=== PATIENT | female | born 1970 | race Hispanic/Latino ===

== ENCOUNTER 2023-05-19 23:55 | Emergency (ER) | payer SELFPAY ==
--- OUTSIDE RECORDS SUMMARY | 2023-05-19 23:58 | XMS REPORT | Continuity of Care Document ---
:1970 Author Organization [facility] t Address [address] [facility] [address] [place] [id number] Care Team Providers Name Role Phone Unavailable Unavailable Unavailable Problems This patient has no known problems. Allergies, Adverse Reactions, Alerts This patient has no known allergies or adverse reactions. Medications This patient has no known medications. Procedures This patient has no known procedures. Encounters Start End Encounter Admission Attending Care Care Encounter Source Date/Time Date/Time Type Type Clinicians Facility Department ID 2023-04-13 2023-04-13 Outpatient SFA SFA [id number] [place] 14:39:08 14:39:08 [id number] [facility] [place] 2023-03-26 2023-03-26 Outpatient SFA SFA [id number] [place]ir 17:17:57 17:17:57 [id number] [facility] [place] 2022-12-22 2022-12-22 Outpatient SFA SFA [id number] [place] 14:14:05 14:14:05 [id number] [facility] [place] 2022-11-16 2022-11-16 Outpatient SFA SFA [id number] [place]ir 15:01:29 15:01:29 [id number] [facility] [place] 2022-09-25 2022-09-25 Outpatient SFA SFA [id number] [place]ir 14:24:13 14:24:13 [id number] [facility] [place] 2022-08-17 2022-08-17 Outpatient SFA [id number] [id number] [place]ir 11:25:00 11:25:00 [id number] [facility] [place] 2022-05-18 2022-05-18 Outpatient SFA SFA [id number] Bashir 15:45:14 15:45:14 [id number] [facility] 2022-04-12 2022-04-12 Outpatient SFA SFA [id number] Bashir 13:58:58 13:58:58 [facility] 2022-04-10 2022-04-10 Outpatient SFA SFA [id number] [place]ir 15:05:59 15:05:59 [id number] F [facility] Results Test Description Test Time Test Comments Results Result Comments Source LIPID PANEL 2023-04-14 05:29:00 Test Item Value Reference Range Interpretation Comme nts CHOLESTEROL (test code = 2210) 174 MG/DL <200 TRIGLYCERIDES (test code = 2232) 98 MG/DL <150 HDL CHOLESTEROL (test code = 58 MG/DL >39 2219) CALC LDL CHOL (test code = 2237) 97 MG/DL <100 NOTE: CALCULATED LDL IS BASED ON SNEHA-OSBORNE METHOD WHICHINCLUDES A DJUSTABLE TRIGLYCERIDE:VL DL CHOLESTEROL RATIO.THIS FACT OR VARIES BY MEASURED TRIGLY CERIDE AND NON-HDLCHOLESTE ROL CONCENTRATIONS WITH INCREASED CALCULATED LDL SEENIN HIGHER T RIGLYCERIDE OR LOWER NON-HDL S PECIMENS. FOR MOREINFORMATION , SEE CLIENT ANNOUNCEMENT AT [email or web address] LDL/HDL (test code = 1.67 RATIO <3.22 2237) COMPREHENSIVE METABOLIC [id number] 05:29:00 Test Item Value Reference Range Interpretation Comments GLUCOSE (test code = 2217) 110 MG/DL 70-99 H BUN (test code = 2208) 18 MG/DL 6-20 CREATININE (test code = 2214) 0.90 MG/DL 0.60-1.30 eGFR (2020 CKD-EPI) (test code 75 ML/MIN/1.73 >60 = 47974) CALC BUN/CREAT (test code = 20 RATIO 12-13) SODIUM (test code = 2231) 140 MEQ/L 133-146 POTASSIUM (test code = 2228) 4.6 MEQ/L 3.5-5.4 CHLORIDE (test code = 2215) 103 MEQ/L 95-107 CARBON DIOXIDE (test code = 27 MEQ/L -2205) CALCIUM (test code = 2209) 9.7 MG/DL 8.5-10.5 PROTEIN, TOTAL (test code = 6.9 G/DL 6.1-8.3 2228) ALBUMIN (test code = 220) 4.2 G/DL 3.5-5.2 CALC GLOBULIN (test code = 2.7 G/DL 1.9-3.7 2239) CALC A/G RATIO (test code = 1.6 RATIO 1.0-2.6 2233) BILIRUBIN, TOTAL (test code = 1.3 MG/DL <=1.2 H 2206) ALKALINE PHOSPHATASE (test 105 U/L 40-133 code = 2204) AST (test code = 2218) 29 U/L 9-40 ALT (test code = 2219) 30 U/L 5-40 HEMOGLOBIN [id number] 03:22:11 Test Item Value Reference Range Interpretation Comments HEMOGLOBIN A1c (test 5.6 % 4.2-5.6 UNLESS OTHERWISE code = 74487) INDICATED, ALL TESTING PERFORMED AT [facility] [employer]. [address] [place], [place] [id number] [place] [address] DIRECTOR: LEONID RATLIFF M.D. IA NUMBER [id number] CAP ACCREDITATION N O. [id number] HEMOGLOBIN [id number] 06:24:06 Test Item Value Reference Range Interpretation Comments HEMOGLOBIN A1c (test 5.7 % 4.2-5.6 H AMERIC AN DIABETES code = 08317) ASSOCIATION IDELINES FOR HGB A1C: PREDIABETES/INC REASED RISK . . . . . . . 5.7 -6.4% DIAGNOSIS OF DI ABETES . . . . . . . . . >=6 .5% WITH CONFIRMATION OR APPROPRIATE SYMPTOMS NOTE: ASSAY MAY BE AFFECTED BY HEMOGLOBINOPATH IES (SICKLE CELL ANEMIA, S- C DISEASE, OTHERS) OR LEXII FICIALLY LOWERED BY DECR EASED RED CELL SURVIVAL ( HEMOLYTIC ANEMIAS, BLOOD LOSS, ETC.). CONSIDER ALTERN ATE TESTING OR LABORATORY C ONSULTATION. CBC W/AUTO DIFF WITH [id number] 05:48:04 Test Item Value Reference Range Interpretation Comments WBC (test code = 6.9 K/UL 3.5-11.0 1001) RBC (test code = 4.59 M/UL 3.80-5.40 1002) HEMOGLOBIN (test code 12.8 G/DL 11.5-15.5 = 1003) HEMATOCRIT (test code 39.8 % 34.0-45.0 = 1004) MCV (test code = 86.7 fL 80.0-99.0 1005) MCH (test code = 27.9 PG 25.0-33.0 1006) MCHC (test code = 32.2 G/DL 31.0-36.0 1007) RDW (test code = 13.0 % 11.5-15.0 1038) NEUTROPHILS (test 60.5 % code = 1008) LYMPHOCYTES (test 29.7 % code = 1010) MONOCYTES (test code 7.1 % = 1011) EOSINOPHILS (test 1.5 % code = 1012) BASOPHILS (test code 0.6 % = 1013) IMMATURE GRANULOCYTES 0.6 % (test code = 1036) NUCLEATED RBCS (test 0.0 /100 WBC'S See_Comment [Aut omated code = 1065) message] The sy stem which generated this result transmitted reference range : 0.0. The refere nce range was not u sed to interpret th is result as normal/abnormal . PLATELET COUNT (test 271 K/UL 130-400 code = 1015) ABSOLUTE NEUTROPHILS 4.16 K/UL 1.50-7.50 (test code = 1066) ABSOLUTE LYMPHOCYTES 2.04 K/UL 1.00-4.00 (test code = 1067) ABSOLUTE MONOCYTES 0.49 K/UL 0.20-1.00 (test code = 1068) ABSOLUTE EOSINOPHILS 0.10 K/UL 0.00-0.50 (test code = 1040) ABSOLUTE BASOPHILS 0.04 K/UL 0.00-0.20 (test code = 1069) ABS IMMATURE 0.04 K/UL 0.00-0.10 GRANULOCYTES (test code = 1020) ABS NUCLEATED RBCS 0.00 K/UL 0.00-0.11 (test code = 46157) [id number] 05:26:23 Test Item Value Reference Range Interpretation Comments NT-proBNP <50 PG/ML SEE BELOW If NT-ProBNP i s less than 300 (test code = PG/ML, heart fa ilure is unlikely 57596) for allages. Age............ .....Heart Failure Likely <50 Years.......... .>=450 PG/ML 50-75 Years.... .....>=900 PG/ML > 75 Years..... .....>=1800 PG/ML Methodology: Ro damián Carmen Electrochemilum inescense Immunoassay LIPID [id number] 04:32:32 Test Item Value Reference Range Interpretation Comments CHOLESTEROL (test 177 MG/DL <200 code = 2210) TRIGLYCERIDES (test 100 MG/DL <150 code = 2232) HDL CHOLESTEROL (test 57 MG/DL >39 code = 2220) CALC LDL CHOL (test 100 MG/DL <100 H NOTE: C ALCULATED LDL code = 2237) IS BASED ON SNEHA-OSBORNE METHOD WHICHINCLUDES ADJUSTABLE TRIGLYCERIDE:VL DL CHOLESTEROL RAT IO.THIS FACTOR VARIES B Y MEASURED TRIGLY CERIDE AND NON-HDLCHOL ESTEROL CONCENTRATIONS WITH INCREASED CALCU LATED LDL SEENIN HIGH ER TRIGLYCERIDE OR LOWER NON-HDL SPECIME NS. FOR MOREINFORMATION , SEE CLIENT ANNOUNCE MENT AT [email or web address] RATIO LDL/HDL 1.75 RATIO <3.22 (test code = 2238) COMPREHENSIVE METABOLIC [id number] 04:32:32 Test Item Value Reference Range Interpretation Comments GLUCOSE (test code = 94 MG/DL 70-99 2216) BUN (test code = 18 MG/DL 6-20 2207) CREATININE (test 0.83 MG/DL 0.60-1.30 code = 2214) eGFR (2020 CKD-EPI) 84 >60 (test code = 86130) ML/MIN/1.73 CALC BUN/CREAT (test 22 RATIO 6-28 code = 2235) SODIUM (test code = 141 MEQ/L 583-345 5933) POTASSIUM (test code 4.4 MEQ/L 3.5-5.4 = 2227) CHLORIDE (test code 104 MEQ/L 95-107 = 2214) CARBON DIOXIDE (test 26 MEQ/L 19-31 code = 2206) CALCIUM (test code = 9.9 MG/DL 8.5-10.5 2208) PROTEIN, TOTAL (test 7.1 G/DL 6.1-8.3 code = 2229) ALBUMIN (test code = 4.4 G/DL 3.5-5.2 2200) CALC GLOBULIN (test 2.7 G/DL 1.9-3.7 code = 2240) CALC A/G RATIO (test 1.6 RATIO 1.0-2.6 code = 2234) BILIRUBIN, TOTAL 1.1 MG/DL See_Comment [Automated message] (test code = 2207) The [employer] which generated this result transmitted ref erence range: <=1.2. T he reference range was not used to int erpret this result as normal/abnormal . ALKALINE PHOSPHATASE 105 U/L 40-133 (test code = 2203) AST (test code = 23 U/L 9-40 2217) ALT (test code = 27 U/L 5-40 [facility] alarcon s 2218) important patho logy staff changes effective 08/16. New patholo gy staff will prov benigno uninterrupted, excellent patie nt care and clini melany consultation. S ee URL: [email or web address] UNLE SS OTHERWISE INDIC ATED, ALL TESTING PER FORMED AT [facility], [place] [id number] JAYDON BRUNO DIRECTOR: FEDERICA KERN M.D. CLIA NUMBER [id number] CAP ACCREDITATION N O. [id number] TSH, THIRD [id number] 03:16:43 Test Item Value Reference Range Interpretation Comments TSH, THIRD 1.200 UIU/ML 0.400-4.100 UNLESS OTHERWI SE GENERATION (test INDICATED, ALL TESTING code = 2821) PERFORMED [facility] [place] [id number] JAYDON BRUNO DIRECTOR: FEDERICA KERN M.D. CLIA NUMBER [id number] CAP ACCREDITATION N O. [id number] LIPID [id number] 01:35:20 Test Item Value Reference Range Interpretation Comments CHOLESTEROL (test 196 MG/DL <200 code = 2210) TRIGLYCERIDES (test 117 MG/DL <150 code = 2232) HDL CHOLESTEROL (test 61 MG/DL >39 code = 2220) CALC LDL CHOL (test 113 MG/DL <100 H NOTE: C ALCULATED LDL code = 2237) IS BASED ON SNEHA-OSBORNE METHOD WHICHINCLUDES ADJUSTABLE TRIGLYCERIDE:VL DL CHOLESTEROL RAT IO.THIS FACTOR VARIES B Y MEASURED TRIGLY CERIDE AND NON-HDLCHOL ESTEROL CONCENTRATIONS WITH INCREASED CALCU LATED LDL SEENIN HIGH ER TRIGLYCERIDE OR LOWER NON-HDL SPECIME NS. FOR MOREINFORMATION , SEE CLIENT ANNOUNCE MENT AT [email or web address] RISK RATIO LDL/HDL 1.85 RATIO <3.22 (test code = 2238) COMPREHENSIVE METABOLIC [id number] 01:35:20 Test Item Value Reference Range Interpretation Comments GLUCOSE (test code = 95 MG/DL 70-99 2216) BUN (test code = 20 MG/DL 6-20 2207) CREATININE (test 0.89 MG/DL 0.60-1.30 code = 2214) eGFR (2020 CKD-EPI) 77 ML/MIN/1.73 >60 (test code = 21688) CALC BUN/CREAT (test 22 RATIO 6-28 code = 2235) SODIUM (test code = 140 MEQ/L 029-110 7662) POTASSIUM (test code 4.4 MEQ/L 3.5-5.4 = 2227) CHLORIDE (test code 102 MEQ/L 95-107 = 2214) CARBON DIOXIDE (test 23 MEQ/L 19-31 code = 2206) CALCIUM (test code = 9.5 MG/DL 8.5-10.5 2208) PROTEIN, TOTAL (test 7.0 G/DL 6.1-8.3 code = 222) ALBUMIN (test code = 4.4 G/DL 3.5-5.2 2200) CALC GLOBULIN (test 2.6 G/DL 1.9-3.7 code = 2240) CALC A/G RATIO (test 1.7 RATIO 1.0-2.6 code = 2234) BILIRUBIN, TOTAL 0.9 MG/DL See_Comment [Automated message] (test code = 220) The syste m which generated this result transmit renard reference range : <=1.2. The refe rence range was not u sed to interpret th is result as normal/abnormal . ALKALINE PHOSPHATASE 83 U/L 40-133 (test code = 2204) AST (test code = 20 U/L 9-40 2217) ALT (test code = 22 U/L 5-40 2218) CBC W/AUTO DIFF WITH [id number] 04:15:33 Test Item Value Reference Range Interpretation Comments WBC (test code = 8.8 K/UL 3.5-11.0 1001) RBC (test code = 4.66 M/UL 3.80-5.40 1002) HEMOGLOBIN (test code 13.5 G/DL 11.5-15.5 = 1003) HEMATOCRIT (test code 39.7 % 34.0-45.0 = 1004) MCV (test code = 85.2 fL 80.0-99.0 1005) MCH (test code = 29.0 PG 25.0-33.0 1006) MCHC (test code = 34.0 G/DL 31.0-36.0 1007) RDW (test code = 13.1 % 11.5-15.0 1038) NEUTROPHILS (test 78.0 % code = 1008) LYMPHOCYTES (test 16.5 % code = 1010) MONOCYTES (test code 4.2 % = 1011) EOSINOPHILS (test 0.5 % code = 1012) BASOPHILS (test code 0.6 % = 1013) IMMATURE GRANULOCYTES 0.2 % (test code = 1036) NUCLEATED RBCS (test 0.0 /100 WBC'S See_Comment [Aut omated code = 1065) message] The sy stem which generated this result transmitted reference range : 0.0. The refere nce range was not u sed to interpret th is result as normal/abnormal . PLATELET COUNT (test 277 K/UL 130-400 code = 1015) ABSOLUTE NEUTROPHILS 6.87 K/UL 1.50-7.50 (test code = 1066) ABSOLUTE LYMPHOCYTES 1.45 K/UL 1.00-4.00 (test code = 1067) ABSOLUTE MONOCYTES 0.37 K/UL 0.20-1.00 (test code = 1068) ABSOLUTE EOSINOPHILS 0.04 K/UL 0.00-0.50 (test code = 1040) ABSOLUTE BASOPHILS 0.05 K/UL 0.00-0.20 (test code = 1069) ABS IMMATURE 0.02 K/UL 0.00-0.10 GRANULOCYTES (test code = 1020) ABS NUCLEATED RBCS 0.00 K/UL 0.00-0.11 (test code = 20363)
[2023-05-20 00:57] LABS: Absolute Lymphocytes (CBC) 2.9 K/uL (0.7-4.9); Hematocrit 40.2 % (36.0-45.0); Lymphocytes % 36.1 % (15.3-44.8); MPV 8.9 fL (7.6-11.3); Platelets 224 thou/uL (152-406); RBC Red Blood Cell Count 4.68 M/uL (3.86-4.86)
[2023-05-20 01:07] LABS: Protime INR 0.88
[2023-05-20 01:16] LABS: Albumin 3.7 g/dL (3.4-5.0); Bilirubin Direct 0.2 mg/dL (0-0.2); Bilirubin Indirect, Calculated 0.5 mg/dL (0.2-0.8); Bilirubin Total 0.7 mg/dL (0.2-1.0); Magnesium 2.3 mg/dL (1.6-2.4); Potassium 3.7 mEq/L (3.5-5.1); Protein, Total 7.6 g/dL (6.4-8.2); Troponin High Sensitivity 7.2 pg/mL (<58.9)
--- NOTE | 2023-05-20 02:22 | ER ---
Nurse's Notes [facility] Name: Christine Real Age: 53 yrs Sex: Female : 1970 Arrival Date: 05/19/2023 Time: 23:55 Bed 18 Private MD: Diagnosis: Weakness;Anxiety disorder, unspecified Presentation: 05/20 00:15 Chief complaint: Patient states: Left sided weakness onset 3 hrs ago. Pt states that cm10 she was watching TV when all of this began. Pt states that 45 minutes ago pt began having a heavy sensation to left arm and leg. pt denies headache and reports shortness of breath. PT denies chest pain. Coronavirus screen: Vaccine status: Patient reports being unvaccinated. Client denies travel out of the [place] in the last 14 days. Ebola Screen: Patient denies travel to an Ebola-affected area in the 21 days before illness onset. No symptoms or risks identified at this time. Initial Sepsis Screen: Does the patient meet any 2 criteria? No. Patient's initial sepsis screen is negative. Does the patient have a suspected source of infection? No. Patient's initial sepsis screen is negative. Risk Assessment: Do you want to hurt yourself or someone else? Patient reports no desire to harm self or others. Onset of symptoms was May 20, 2023. 00:15 Method Of Arrival: Ambulatory cm10 00:15 Acuity: SACHIN 3 cm10 Historical: - Allergies: 00:18 No Known Allergies; cm10 - PMHx: 00:18 Hypertensive disorder; cm10 - Immunization history:: Adult Immunizations unknown. - Social history:: Smoking status: Patient denies any tobacco usage or history of. Screenin:45 [facility] ED Fall Risk Assessment (Adult) History of falling in the last 3 months, nw1 including since admission No falls in past 3 months (0 pts) Confusion or Disorientation No (0 pts) Intoxicated or Sedated No (0 pts) Impaired Gait No (0 pts) Mobility Assist Device Used No (0 pt) Altered Elimination No (0 pt) Score/Fall Risk Level 0 - 2 = Low Risk Oriented to surroundings, Maintained a safe environment, Assessed \T\ reinforced patient's understanding of fall precautions, Provided non-skid footwear, Hourly rounding (assess needs \T\ fall precautionary measures) done, Used ambulatory aids as needed (educated on \T\ assisted with). Abuse screen: Denies threats or abuse. Denies injuries from another. Nutritional screening: No deficits noted. Tuberculosis screening: No symptoms or risk factors identified. Assessment: 00:45 Reassessment: Pt states that she was out with and started feeling heaviness to nw1 her left foot. Pt states she was anxious while was driving in [place]. 00:45 General: Appears in no apparent distress. comfortable, Behavior is calm, cooperative, nw1 appropriate for age. Pain: Denies pain. Neuro: No deficits noted. Level of Consciousness is awake, alert, obeys commands, Oriented to person, place, time, situation. Cardiovascular: No deficits noted. Reports None Denies chest pain, diaphoresis, fatigue, lightheadedness, nausea, palpitations, shortness of breath, syncope, vomiting, Heart tones present Capillary refill < 3 seconds Rhythm is sinus rhythm. Respiratory: No deficits noted. Breath sounds are clear bilaterally. GI: No deficits noted. No signs and/or symptoms were reported involving the gastrointestinal system. Derm: No deficits noted. No signs and/or symptoms reported regarding the dermatologic system. Musculoskeletal: No deficits noted. No signs and/or symptoms reported regarding the musculoskeletal system. 00:45 Reassessment: NIH scale 0. nw1 01:50 Reassessment: NIH scale 0. nw1 Vital Signs: 00:15 BP 189 / 93; Pulse 105; Resp 18; Temp 98(IR); Pulse Ox 100% ; Weight 97.52 kg; Height 5 cm10 ft. 1 in. ; 01:48 BP 121 / 81; Pulse 70; Resp 15; Pulse Ox 98% on R/A; nw1 00:15 Body Mass Index 40.62 (97.52 kg, 154.94 cm) cm10 Alicja Coma Score: 00:45 Eye Response: spontaneous(4). Motor Response: obeys commands(6). Verbal Response: nw1 oriented(5). Total: 15. NIH Stroke Scale Scores: 00:23 NIHSS Score: 0 ms3 ED Course: 00:02 Patient arrived in ED. kj1 00:09 Chuyita Vazquez FNP-C is [facility]. kb 00:09 Isiah Salmon DO is Attending Physician. kb 00:17 Triage completed. cm10 00:18 Arm band placed on Patient placed in an exam room, on a stretcher. cm10 00:26 Mel Srivastava, RN is Primary Nurse. nw1 00:45 Patient has correct armband on for positive identification. Placed in gown. Bed in low nw1 position. Side rails up X2. Provided Education on: POC. Client placed on continuous cardiac and pulse oximetry monitoring. NIBP monitoring applied. polyethylene bag machine operator on. Pulse ox on. NIBP on. Door closed. Visitors limited. Warm blanket given. 00:45 Initial lab(s) drawn, by me, sent to lab. Inserted saline lock: 20 gauge in right nw1 forearm, using aseptic technique. Blood collected. 00:53 Stroke CXR 1 View In Process Unspecified. EDMS 00:59 Hepatic Function Sent. nw1 00:59 High Sensitivity Troponin Sent. nw1 00:59 Magnesium Sent. nw1 00:59 Protime (+inr) Sent. nw1 00:59 Ptt, Activated Sent. nw1 00:59 CBC with Diff Sent. nw1 00:59 Basic Metabolic Panel Sent. nw1 01:09 CT Head Angio In Process Unspecified. EDMS 01:09 CT Neck Angio In Process Unspecified. EDMS 01:09 CT Stroke Brain w/o Contrast In Process Unspecified. EDMS 01:49 No provider procedures requiring assistance completed. nw1 02:21 Eliel Alba MD is Referral Physician. ms3 02:37 IV discontinued, intact, bleeding controlled, No redness/swelling at site. Pressure as6 dressing applied. Administered Medications: No medications were administered Medication: 00:45 VIS not applicable for this client. nw1 Outcome: 02:22 Discharge ordered by . ms3 02:37 Discharged to home ambulatory, as6 02:37 Condition: stable 02:37 Discharge instructions given to patient, Instructed on discharge instructions, follow up and referral plans. Demonstrated understanding of instructions, follow-up care, 02:37 Patient left the ED. as6 NIH Stroke Scale - NIH Stroke Score Date: 05/20/2023 Time: 00:23 Total Score = 0 10. Dysarthria (speech clarity - read or repeat words) - 0(Normal) 11. Extinction and Inattention (visual/tactile/auditory/spatial/personal) - 0(No abnormality) 1a. Level of Consciousness (LOC) - 0(Alert) 1b. Level of Consciousness (LOC) (Month \T\ Age) - 0(Both) 1c. LOC Commands (Open \T\ Closes Eyes/Broke Man) - 0(Both) 2. Best Gaze (Lateral Gaze Paresis) - 0(Normal) 3. Visual Field Loss - 0(No visual loss) 4. Facial Palsy - 0(Normal) 5a. Left Arm: Motor (10-second hold) - 0(No drift) 5b. Right Arm: Motor (10-second hold) - 0(No drift) 6a. Left Leg: Motor (5-second hold - always test supine) - 0(No drift) 6b. Right Leg: Motor (5-second hold - always test supine) - 0(No drift) 7. Limb Ataxia (finger/nose \T\ heel/mello - test with eyes open) - 0(Absent) 8. Sensory Loss (pinprick arms/legs/face) - 0(Normal) 9. Best Language: Aphasia (description/naming/reading) - 0(No aphasia) Initials: ms3 Signatures: Dispatcher [employer] EDMS Chuyita Vazquez, CENTRAL SCHEDULER-C CENTRAL SCHEDULER-Ckb Saumya Vazquez kj1 Isiah Salmon, DO ms3 Wilson Carrillo RN RN as6 Sarita Varela, RN RN cm10 Mel Srivastava RN RN nw1
--- NOTE | 2023-05-20 02:22 | EDPHYS ---
Physician Documentation [facility] Name: Christine Real Age: 53 yrs Sex: Female : 1970 Arrival Date: 05/19/2023 Time: 23:55 Bed 18 Private MD: ED Physician Isiah Salmon HPI: 05/20 00:23 This 53 yrs old Female presents to ER via Ambulatory with complaints of High ms3 Blood Pressure, Leg Pain. 00:23 53-year-old female with past medical history of hypertension presents to the emergency ms3 department for left arm/left leg feeling heavy for approximately 3 hours prior to arrival. Patient endorses shortness of breath. Patient denies chest pain, headache, vomiting. Patient denies any alleviating or inciting factors. Historical: - Allergies: 00:18 No Known Allergies; cm10 - PMHx: 00:18 Hypertensive disorder; cm10 - Immunization history:: Adult Immunizations unknown. - Social history:: Smoking status: Patient denies any tobacco usage or history of. ROS: 00:23 Constitutional: Negative for fever, and chills. Neck: Negative for injury, pain, and ms3 swelling, Cardiovascular: Negative for chest pain, and palpitations. Respiratory: Negative for shortness of breath, cough, wheezing, and pleuritic chest pain, Abdomen/GI: Negative for abdominal pain, nausea, vomiting, diarrhea, and constipation, 00:23 MS/extremity: Positive for Left arm/Leg feel weak, 00:23 All other systems are negative, Exam: 00:23 Constitutional: This is a well developed, well nourished patient who is awake, alert, ms3 and in no acute distress. Head/Face: Normocephalic, atraumatic. Neck: Trachea midline, no cervical lymphadenopathy. Supple, full range of motion without nuchal rigidity, or vertebral point tenderness. No Meningismus. Chest/axilla: Normal chest wall appearance and motion. Nontender with no deformity. Cardiovascular: Regular rate and rhythm with a normal S1 and S2. No gallops, murmurs, or rubs. Normal PMI, no JVD. No pulse deficits. Respiratory: Lungs have equal breath sounds bilaterally, clear to auscultation and percussion. No rales, rhonchi or wheezes noted. No increased work of breathing, no retractions or nasal flaring. Abdomen/GI: Soft, non-tender, with normal bowel sounds. No distension or tympany. No guarding or rebound. No evidence of tenderness throughout. Skin: Warm, dry with normal turgor. Normal color with no rashes, no lesions, and no evidence of cellulitis. MS/ Extremity: Pulses equal, no cyanosis. Neurovascular intact. Full, normal range of motion. 02:29 ECG was reviewed by the Attending Physician. ms3 Vital Signs: 00:15 BP 189 / 93; Pulse 105; Resp 18; Temp 98(IR); Pulse Ox 100% ; Weight 97.52 kg; Height 5 cm10 ft. 1 in. ; 01:48 BP 121 / 81; Pulse 70; Resp 15; Pulse Ox 98% on R/A; nw1 00:15 Body Mass Index 40.62 (97.52 kg, 154.94 cm) cm10 NIH Stroke Scale Scores: 00:23 NIHSS Score: 0 ms3 [place] Coma Score: 00:45 Eye Response: spontaneous(4). Motor Response: obeys commands(6). Verbal Response: nw1 oriented(5). Total: 15. MDM: 00:09 Patient medically screened. kb 00:25 Differential diagnosis: hypertensive crisis, CVA, intracerebral hemorrhage. ms3 02:19 Data reviewed: vital signs, nurses notes, lab test result(s), EKG, radiologic studies, ms3 and as a result, I will discharge patient. Consideration of Admission/Observation Escalation of care including admission/observation considered. Independent interpretation of the following test(s) in the Emergency Department EKG: See my EKG interpretation above CT Scan: My interpretation is CT head without contrast images reviewed by me did not reveal ICH. Discussion of test interpretation with radiology: I had a discussion with radiology regarding a test interpretation. CT head normal. Care significantly affected by the following chronic conditions: Hypertension. Care significantly affected by the following Social Determinants of Health: Poor access to healthcare and/or lack of insurance. Counseling: I had a detailed discussion with the patient and/or guardian regarding the historical points, exam findings, and any diagnostic results supporting the discharge/admit diagnosis, lab results, radiology results, the need for outpatient follow up, to return to the emergency department if symptoms worsen or persist or if there are any questions or concerns that arise at home. Special discussion: I discussed with the patient/guardian in detail that at this point there is no indication for admission to the hospital. It is understood, however, that if the symptoms persist or worsen the patient needs to return immediately for re-evaluation. ED course: Patient states she believes her symptoms were due to her 's driving and used in traffic coming home after dinner tonight. Patient states she does not like driving and used in traffic. Discussed with patient necessity to follow-up with Dr. Alba and 2 to 3 days. Patient understands and agrees with plan. All questions were answered. Return precautions discussed include worsening symptoms, or other concerns. 05/20 00:23 Order name: Basic Metabolic Panel; Complete Time: 01:54 ms3 05/20 00:23 Order name: CBC with Diff; Complete Time: 01:54 ms3 05/20 00:23 Order name: Hepatic Function; Complete Time: 01:54 ms3 05/20 00:23 Order name: High Sensitivity Troponin; Complete Time: 01:54 ms3 05/20 00:23 Order name: Magnesium; Complete Time: 01:54 ms3 05/20 00:23 Order name: Protime (+inr); Complete Time: 01:54 ms3 05/20 00:23 Order name: Ptt, Activated; Complete Time: 01:54 ms3 05/20 00:23 Order name: CT Head Angio ms3 05/20 00:23 Order name: CT Neck Angio ms3 05/20 00:23 Order name: CT Stroke Brain w/o Contrast ms3 05/20 00:23 Order name: Stroke CXR 1 View ms3 05/20 00:23 Order name: EKG; Complete Time: 00:24 ms3 05/20 00:23 Order name: Accucheck; Complete Time: 01:39 ms3 05/20 00:23 Order name: Cardiac monitoring; Complete Time: 01:05 ms3 05/20 00:23 Order name: EKG - Nurse/Tech; Complete Time: 02:33 ms3 05/20 00:23 Order name: IV Saline Lock; Complete Time: 00:59 ms3 05/20 00:23 Order name: Labs collected and sent; Complete Time: 00:59 ms3 05/20 00:23 Order name: NPO; Complete Time: 01:38 ms3 05/20 00:23 Order name: O2 Per Protocol; Complete Time: 00:59 ms3 05/20 00:23 Order name: O2 Sat Monitoring; Complete Time: 00:59 ms3 05/20 00:23 Order name: Stroke Swallow Screen; Complete Time: 00:59 ms3 EC:29 Rate is 83 beats/min. Rhythm is regular. QRS [place] is Normal. NC interval is normal. QRS ms3 interval is normal. Clinical impression: Normal ECG. Interpreted by me. Reviewed by me. Administered Medications: No medications were administered Disposition Summary: 05/20/23 02:22 Discharge Ordered Notes: Location: Home ms3 Condition: Stable ms3 Diagnosis - Weakness ms3 - Anxiety disorder, unspecified ms3 Followup: ms3 - With: Eliel Alba MD - When: 2 - 3 days - Reason: Recheck today's complaints Discharge Instructions: - Discharge Summary Sheet ms3 - Weakness, [id number] ms3 Forms: - Medication Reconciliation Form ms3 - Thank You Letter ms3 - Antibiotic Education ms3 - Prescription Opioid Use ms3 - Patient Portal Instructions ms3 - Leadership Thank You Letter ms3 NIH Stroke Scale - NIH Stroke Score Date: 05/20/2023 Time: 00:23 Total Score = 0 10. Dysarthria (speech clarity - read or repeat words) - 0(Normal) 11. Extinction and Inattention (visual/tactile/auditory/spatial/personal) - 0(No abnormality) 1a. Level of Consciousness (LOC) - 0(Alert) 1b. Level of Consciousness (LOC) (Month \T\ Age) - 0(Both) 1c. LOC Commands (Open \T\ Closes Eyes/Paper Folding Machine Operator) - 0(Both) 2. Best Gaze (Lateral Gaze Paresis) - 0(Normal) 3. Visual Field Loss - 0(No visual loss) 4. Facial Palsy - 0(Normal) 5a. Left Arm: Motor (10-second hold) - 0(No drift) 5b. Right Arm: Motor (10-second hold) - 0(No drift) 6a. Left Leg: Motor (5-second hold - always test supine) - 0(No drift) 6b. Right Leg: Motor (5-second hold - always test supine) - 0(No drift) 7. Limb Ataxia (finger/nose \T\ heel/mello - test with eyes open) - 0(Absent) 8. Sensory Loss (pinprick arms/legs/face) - 0(Normal) 9. Best Language: Aphasia (description/naming/reading) - 0(No aphasia) Initials: ms3 Signatures: Dispatcher [employer] EDChuyita Celestin, UR COORDINATOR-C UR COORDINATOR-Ckb Isiah Salmon DO DO ms3 Sarita Varela, RN RN cm10
[2023-05-20 02:42] VITALS: TEMP 98
[2023-05-20 02:48] VITALS: BP 121/81; O2SAT 98
--- NOTE | 2023-05-21 10:54 | RAD REPORT ---
EXAM DESCRIPTION: CT - Neck Angio - 05/20/2023 8:19 am CLINICAL HISTORY: The patient is 53 years old and is Female; Left arm/leg feels weak TECHNIQUE: Routine carotid CT angiography protocol was performed with intravenous contrast. NASCET criteria using the distal ICAs for comparison were used for evaluation of stenoses. Sagittal and c oronal reformatted images were created and reviewed. This CT exam was performed using one or more o f the following dose reduction techniques: automated exposure control, adjustment of the mA and/or kV according to patient size, and/or use of iterative reconstruction technique. MIP reconstructed i mages were created and reviewed. COMPARISON: None. FINDINGS: VASCULATURE: Right common carotid artery: Unremarkable. No occlusion or significant stenosis. No dissectio n. Right internal carotid artery: Unremarkable. Extracranial segment is patent with no occlusion o r significant stenosis. No dissection. Right external carotid artery: Unremarkable. No occlusion. Right vertebral artery: Unremarkable. No occlusion or significant stenosis. No dissection. Left common carotid artery: Unremarkable. No occlusion or significant stenosis. No dissection . Left internal carotid artery: Unremarkable. Extracranial segment is patent with no occlusion or significant stenosis. No dissection. Left external carotid artery: Unremarkable. No occlusion. Left vertebral artery: Unremarkable. No occlusion or significant stenosis. No dissection. NECK: Bones/joints: Unremarkable. No acute fracture. Soft tissues: Unremarkable. Lung apices: Clear. CAROTID STENOSIS REFERENCE USING NASCET CRITERIA: % ICA stenosis = (1 - narrowest ICA diameter/diameter of distal cervical ICA) x 100. Mild - <50% stenosis. Moderate - 50-69% stenosis. Severe - 70-94% stenosis. Near occlusion - 95-99% stenosis. Occluded - 100% stenosis. IMPRESSION: No significant stenosis. No dissection or occlusion. Electronically signed by: Diego Chavira MD 05/20/2023 01:48 AM ANALYTICAL RESEARCH CHEMIST Due to temporary technical issues with the PACS/Fluency reporting system, reports are being signed by the in house radiologist without review as a courtesy to ensure prompt reporting. The interpreting r adiologist is fully responsible for the content of the report.
--- NOTE | 2023-05-21 10:57 | RAD REPORT ---
EXAM DESCRIPTION: CT - Head angio - 05/20/2023 8:19 am CLINICAL HISTORY: The patient is 53 years old and is Female; STROKE ALERT TECHNIQUE: Axial computed tomographic angiography images of the head with intravenous contrast. Sa gittal and coronal reformatted images were created and reviewed. This CT exam was performed using o ne or more of the following dose reduction techniques: automated exposure control, adjustment of th e mA and/or kV according to patient size, and/or use of iterative reconstruction technique. MIP rec onstructed images were created and reviewed. COMPARISON: No relevant prior studies available. FINDINGS: Right internal carotid artery: No acute findings. Intracranial segment is patent with no significant stenosis. No aneurysm. Right anterior cerebral artery: Unremarkable. No occlusion or significant stenosis. No aneury sm. Right middle cerebral artery: Unremarkable. No occlusion or significant stenosis. No aneurysm . Right posterior cerebral artery: Unremarkable. No occlusion or significant stenosis. No aneur ysm. Right vertebral artery: Unremarkable as visualized. Left internal carotid artery: No acute findings. Intracranial segment is patent with no signifi cant stenosis. No aneurysm. Left anterior cerebral artery: Unremarkable. No occlusion or significant stenosis. No aneurys m. Left middle cerebral artery: Unremarkable. No occlusion or significant stenosis. No aneurysm. Left posterior cerebral artery: Unremarkable. No occlusion or significant stenosis. No aneury sm. Left vertebral artery: Unremarkable as visualized. Basilar artery: Unremarkable. No occlusion or significant stenosis. No aneurysm. IMPRESSION: No occlusion or significant stenosis. No aneurysm. Electronically signed by: Diego Chavira MD 05/20/2023 01:45 AM KILN REPAIRER Due to temporary technical issues with the PACS/Fluency reporting system, reports are being signed by the in house radiologist without review as a courtesy to ensure prompt reporting. The interpreting r adiologist is fully responsible for the content of the report.
--- NOTE | 2023-05-21 11:00 | RAD REPORT ---
EXAM DESCRIPTION: CT - Ct Stroke Brain Wo Cont - 05/20/2023 8:19 am ADDENDUM #1 THIS REPORT CONTAINS FINDINGS THAT MAY BE CRITICAL TO PATIENT CARE: The findings were verbally discussed via telephone conference with Dr. Isaih Salmon by Dr. Lisa Kong on 05/20 1:22 AM ASPHALT ROLLER OPERATOR .The results were acknowledged and understood. Electronically signed by: Danna Kong MD 05/20/2023 01:22 AM ASPHALT ROLLER OPERATOR End of Addendum EXAM: CT Head Without Intravenous Contrast CLINICAL HISTORY: The patient is 53 years old and is Female; STROKE ALERT TECHNIQUE: Axial computed tomography images of the head/brain without intravenous contrast. Sagitt al and coronal reformatted images were created and reviewed. This CT exam was performed using one o r more of the following dose reduction techniques: automated exposure control, adjustment of the mA and/or kV according to patient size, and/or use of iterative reconstruction technique. COMPARISON: No relevant prior studies available. FINDINGS: BRAIN: Unremarkable. The ac-white matter differentiation is preserved . No hemorrhag e. No significant white matter disease. No edema. No extra-axial fluid collections. VENTRICLES: Unremarkable. No ventriculomegaly. BONES/JOINTS: No acute fracture. SOFT TISSUES: Unremarkable. SINUSES: Unremarkable as visualized. No acute sinusitis. MASTOID AIR CELLS: Unremarkable as visualized. No mastoid effusion. ORBITS: Unremarkable as visualized. IMPRESSION: No acute intracranial findings. Electronically signed by: Danna Kong MD 05/20/2023 01:17 AM ASPHALT ROLLER OPERATOR Due to temporary technical issues with the PACS/Fluency reporting system, reports are being signed by the in house radiologist without review as a courtesy to ensure prompt reporting. The interpreting r adiologist is fully responsible for the content of the report.
--- NOTE | 2023-05-21 11:02 | RAD REPORT ---
EXAM DESCRIPTION: RAD - Chest Single View - 05/20/2023 12:51 am CLINICAL HISTORY: The patient is 53 years old and is Female; stroke TECHNIQUE: Frontal view of the chest. COMPARISON: No relevant prior studies available. FINDINGS: Lungs: Unremarkable. No consolidation. Pleural space: Unremarkable. No pneumothorax. Heart: Unremarkable. Mediastinum: Unremarkable. Normal mediastinal contour. Bones/joints: No acute findings. IMPRESSION: No acute findings in the chest. Electronically signed by: Diego Chavira MD 05/20/2023 01:04 AM COIL INSPECTOR Due to temporary technical issues with the PACS/Fluency reporting system, reports are being signed by the in house radiologist without review as a courtesy to ensure prompt reporting. The interpreting r adiologist is fully responsible for the content of the report.
--- NOTE | 2023-05-22 13:37 | EKG ---
Test Date: 2023-05-20 Test Time: 02:29:02 Chief Mechanical Officer: [place] MEASUREMENT RESULTS: Intervals: Rate: 83 W[place]: 140 QRSD: 80 QT: 366 QTc: 430 [place]: P: 67 WY: 140 QRS: 38 T: 41 INTERPRETIVE STATEMENTS: Normal sinus rhythm Normal ECG Compared to ECG 02/26/2013 20:39:16 Myocardial infarct finding no longer present Electronically Signed On 05-22-23 13:29:25 WEIGHT LOSS SALES CONSULTANT by Heath Poole
== END 2023-05-20 02:37 | disposition home or self-care (01) ==
LOC: ER 23:55
DX: R53.1 Weakness (principal); F41.9 Anxiety disorder, unspecified; I10 Essential (primary) hypertension
CPT/HCPCS: 36415; 70450; 70496; 70498; 71045; 80048; 80076; 83735; 84484; 85025; 85610; 85730; 93005; 99284; Q9967